=== PATIENT | male | born 1970 | race Caucasian/White ===

== ENCOUNTER 2019-08-15 04:14 | Emergency (ER) | payer OTHER ==
[~2019-08-15] VITALS: Ht 180.3 cm; Wt 81.6 kg
[2019-08-15] MEDS ORDERED: CLONAZEPAM0.25 MG (04:27)
== END 2019-08-15 13:00 | disposition home or self-care (01) ==
LOC: ER 04:14
DX: M25.475 Effusion, left foot (principal)

== ENCOUNTER 2021-08-31 09:05 | Outpatient (CLI) | payer OTHER ==
[~2021-08-31 09:05] MED LIST: CLONAZEPAM0.25 MG
== END 2021-08-31 09:15 | disposition home or self-care (01) ==
LOC: PPH VACUNA 09:05
PROVIDERS: ATTEND Emergency Medicine Pediatric Emergency Medicine
DX: Z23 Encounter for immunization (principal)